=== PATIENT | female | born 1970 | race Caucasian/White ===

== ENCOUNTER 2024-09-21 13:43 | Emergency (ER) | payer MEDICAID, SELFPAY ==
[2024-09-21 14:04] VITALS: BP 178/97; PULSE 85; RESP 18; TEMP 36.7; O2SAT 96; BMI 40.9
--- NOTE | 2024-09-21 14:12 | PD.EDWOUND ---
ED Wound/Laceration-RME/HPI General Chief Complaint: Wound/Laceration Stated Complaint: LEFT INDEX FINGER STILL BLEEDING FROM YESTERDAY Time Seen by Provider: 09/21/24 13:54 Arrival date/time: 09/21/24 13:43 RME / HPI RME / HPI narrative: 54-year-old female patient came in for evaluation regarding laceration to the left index finger. Patient sustained a laceration with a knife 20 hours ago. Patient applied liquid glue and dressing. Today patient tried to change the dressing and noticed some bleeding. Denies any limitation of range of motion of the finger. Tetanus vaccination is unknown. Related Data Home Medications ?Medication ?Instructions ?Recorded ?Confirmed lisinopril 20 mg tablet 20 mg PO QDAY 11/18/21 08/05/22 amlodipine 10 mg tablet 1 tab PO QDAY 12/07/21 08/05/22 Previous Rx's ?Medication ?Instructions ?Recorded cephalexin 500 mg capsule 500 mg PO TID 7 days #21 caps 09/21/24 ibuprofen 800 mg tablet 800 mg PO TID PRN pain #30 tabs 09/21/24 Allergies Allergy/AdvReac Type Severity Reaction Status Date / Time No Known Allergies Allergy Verified 09/21/24 13:47 Review of Systems Review of Systems Narrative Review of Systems: Review of system reviewed and within normal limits except mentioned in HPI ED Exam Narrative Physical exam: VITAL SIGNS: Reviewed. GENERAL APPEARANCE: Alert and interactive, follows commands, no acute distress, HEAD AND FACE: Non-traumatic. ENT: PERRL, pink conjunctivitis, eyelid no trauma, Mucous membrane moist. RECTAL: Deferred. GENITAL: Deferred. NEUROLOGICAL: Gross motor function intact sensory function intact, Appropriate for age. MUSCULOSKELETAL: low back nontender, full range of motion. EXTREMITIES: 1 cm gaping laceration to the left index fingertip palmar aspect full range of motion of the finger, distal neurovascular status intact SKIN: Color pink, dry, no rash, no lacerations, no abrasions, no contusions. LYMPHATICS: Deferred. Course Quality Measures none Orders Category Date Time Status Ibuprofen Tab [Motrin Tab] Med 09/21/24 14:10 Discontinued 800 mg PO X1 ONE TET,DIP/PERT AC (Adult)-Tdap [Boostrix Adult (Tdap) Med 09/21/24 14:10 Discontinued Vacc] 0.5 ml IMI .ONCE ONE Vital Signs Vital signs: Vital Signs Temperature 98.1 F 09/21/24 14:04 Pulse Rate 85 09/21/24 14:04 Respiratory Rate 18 09/21/24 14:04 Blood Pressure 178/97 H 09/21/24 14:04 Pulse Oximetry (%) 96 09/21/24 14:04 Oxygen Delivery Method Room Air 09/21/24 14:04 Wound / Laceration MDM Narrative MDM Narrative:: 54-year-old female patient came in for evaluation regarding laceration to the left index finger. Patient sustained a laceration with a knife 20 hours ago. Patient applied liquid glue and dressing. Today patient tried to change the dressing and noticed some bleeding. Denies any limitation of range of motion of the finger. Tetanus vaccination is unknown. Patient received Boostrix and Motrin. Dressing was applied and sterile strip applied Primary repair is not needed at this time, laceration is more than 20 hours ago. Patient data External records reviewed:: None Clinical information provided by:: patient Social determinants that could affect healthcare access:: none Patient has the following chronic illnesses:: None How is presenting disease/condition affected by chronic disease/condition?: no chronic disease Evaluation data The following diagnostics were reviewed and interpreted by me:: other (specify) (None) Lab and/or radiology exams considered but not ordered:: None Interpretation Summary: None none Medications / Prescriptions Medications or Prescriptions considered but not ordered:: None Medication administrations:: Medication Administration History Discontinued Medications Diphtheria/Tetanus/Acell Pertussis (Diphth,Pertuss(Acell),Tet Vac 0.5 Ml Syr- Adult) 0.5 ml IMi .ONCE ONE Stop: 09/21/24 14:11 Last Admin: 09/21/24 14:57 Dose: 0.5 ml Documented By: Ibuprofen (Ibuprofen Tab 400 Mg Tablet) 800 mg PO X1 ONE Stop: 09/21/24 14:11 Last Admin: 09/21/24 14:56 Dose: 800 mg Documented By: Motrin and Boostrix Consultations Consultation(s) initiated? (list below): No Diagnosis Wound Differential Diagnosis: laceration, abrasion and avulsion of skin Most likely diagnosis given after review of the tests above:: Finger laceration, old Admission Indicated Admission indicated?: not indicated Explain why admission is indicated or not indicated:: Stable Admission Request Was there a request for admission?: No Disposition Plan Disposition Plan: Discharge Discharge Attestation Discharge Attestation: The patient was given an opportunity to ask questions and understood the discharge instructions. Discharge instructions specifically effects, indications for sooner follow up or return to the emergency department, and the expected course of current diagnosis. Patient condition: Stable Discharge Plan Plan Patient Disposition: HOME (Self Care) Discharge Disposition comment: Stable Prescriptions/Referrals Prescriptions/Med Rec: New cephalexin 500 mg capsule 500 mg PO TID 7 Days Qty: 21 0RF ibuprofen 800 mg tablet 800 mg PO TID PRN (Reason: pain) Qty: 30 0RF No Action lisinopril 20 mg tablet 20 mg PO QDAY amlodipine 10 mg tablet 1 tab PO QDAY Patient Comments: TAKE 1 TABLET BY MOUTH EVERY DAY FOR 90 DAYS Problem List Clinical Impression: Finger laceration Patient/Caregiver Discharge Instructions Discharge Activity: activity as tolerated Education Materials: ED Laceration, Old: Not Sutured Additional Instructions: Thank you for the opportunity for serving you today. You are stable for discharged . You are advised to: Follow-up with your PCP in 1 to 2 days Return to ED for worsening of symptoms Increase oral fluids Daily dressing with Neosporin as needed Print Language: Japanese Stand Alone Forms: Radha Award Info., Patient Portal Info Letter SHABNAM/AURE Supervising Physician SHABNAM/AURE Supervising Physician: Md Edu
[2024-09-21] MEDS: IBUPROFEN TAB 400 MG TABLET 800 MG PO (14:56)
[2024-09-21] MEDS: DIPHTH,PERTUSS(ACELL),TET VAC 0.5 ML SYR- ADULT IMi (14:57)
== END 2024-09-21 15:28 | disposition home or self-care (01) ==
LOC: SERX 15:13
PROVIDERS: Emergency Provider Family Medicine; PCP Family Medicine
DX: S61.211A Laceration without foreign body of left index finger without damage to nail, initial encounter (principal); W26.0XXA Contact with knife, initial encounter; Z23 Encounter for immunization
CPT/HCPCS: 12001; 90471; 90715; 99283; A9270